=== PATIENT | female | born 1975 | race Caucasian/White ===

== ENCOUNTER 2018-12-20 02:35 | Emergency (ER) | payer OTHER ==
[~2018-12-20] VITALS: Ht 177.8 cm; Wt 89.8 kg
--- NOTE | 2018-12-20 02:53 | NUR ---
PT BIB [employer] FOR MEDICAL CLEARANCE. PT AAOX4. C/O R HIP, R KNEE PAIN 7/10 S/P FALLING. PT ABLE TO AMBULATE. BREATHING EVEN AND UNLABORED. NO ACUTE DISTRESS NOTED AT THIS TIME. MD AT BEDSIDE FOR EVAL.
[2018-12-20] MEDS ORDERED: KETOROLAC TROMETHAMINE INJ 60 MG/2 ML VIAL IM ONE ×2 (02:58→03:00)
--- NOTE | 2018-12-20 03:06 | NUR ---
PT SIGNED WAIVER. PT IS ON HER MENSTRUAL PERIOD AT THIS TIME
--- NOTE | 2018-12-20 03:07 | NUR ---
[facility] FROM [facility], IN CUSTODY. TO ER BED 11. AAOX4. NO RESP DISTRESS NOTED. AMBULATORY. BROUGHT IN FOR MEIDICAL CLREANCE S/P FALL. PT REPORTS THAT SHE FELL ON LEFT SIDE AND COMPLAIN OF PAIN ON THE R ARM, R HIP AND R KNEE. SONU FOR RIGHT ARM IS INTACT. ROM ON R LE IS LIMITED D/T PAIN. SENSATION ARE FELT ON ALL EXTREMETIES. PT RATES HER PAIN @ 7/10. R KNEE PAIN IS REPORTEAD SHOOTING PAIN FROM THE KNEE TO THE R HIP. R ARM PAIN IS DESCRIDE ACHING. WAS AT BEDSIDE FOR EVAL. ORDERS RECEIVED NOTED AND CARRIED OUT. WAIVER SIGNED BY PT, CURRENTLY ON HER PERIOD. XRAY AT BEDSIDE. MEDSICATED ORDERED. [employer] AT BEDSIDE
--- NOTE | 2018-12-20 04:41 | NUR ---
PT IS MEDICALLY CLEARED FOR INCARCERATION. PT IS RELEASED UNDER THE CARE OF [employer]. [facility] INSTRUCTION GIVEN WELL PRESCRIPTION. PT IS AMBULATORY WITH ASSIST ON STEADY GAIT.
[2018-12-20 04:44] VITALS: BP 104/58
== END 2018-12-20 04:44 ==
LOC: ER 02:49
DX: M25.561 Pain in right knee (principal); M25.551 Pain in right hip; M79.601 Pain in right arm; W01.0XXA Fall on same level from slipping, tripping and stumbling without subsequent striking against object, initial encounter; Y93.39 Activity, other involving climbing, rappelling and jumping off; Y92.89 Other specified places as the place of occurrence of the external cause; Y99.8 Other external cause status
CPT/HCPCS: 73060; 73502; 73564; 96372; 99283; J1885